=== PATIENT | male | born 1960 | race Caucasian/White ===

== ENCOUNTER 2017-11-16 21:23 | Emergency (ER) | payer MEDICARE ==
[~2017-11-16] VITALS: Ht 185.4 cm; Wt 78.2 kg
[~2017-11-16 21:23] MED LIST: PRIL40 PO; PRINIVIL40 MG PO; SYNTHROID0.05 MG/TA PO; TOPROL XL 25MG25 MG PO; ULTRAM 50MG TAB50 MG PO; WELLBUTRIN XL300 M1 PO; XARELTO20 MG PO; ZYLOPRIM 100MG100 MG PO
[2017-11-16 21:31] VITALS: TEMP 98.3
[2017-11-16 22:35] LABS: BASO # 0.1 (0.0-0.2); BASO % 0.9 % (0.0-2.0); EOS # 0.1 (0.0-0.7); EOS % 0.7 % (0-4.0); GRAN # 5.2 (1.4-6.5); GRAN % 73.6 % (42.2-75.2); HEMATOCRIT 36.7 % (42.0-52.0); HEMOGLOBIN 11.7 g/dl (13.5-18.0); LYMPH # 0.8 (1.2-3.4); MEAN CELL VOLUME 95 fl (80.0-100.0); MEAN CORPUSCULAR HEMOGLOBIN 30 pg (27.0-31.0); MEAN CORPUSCULAR HGB CONC 32 g/dl (33.0-37.0); MEAN PLATELET VOLUME 10.5 fl (7.4-10.4); MONO # 0.9 (0.1-0.6); MONO % 12.4 % (1.7-9.3); PLATELET COUNT 185 K/mm3 (130-400); RED BLOOD COUNT 3.86 M/mm3 (4.20-5.60); REDCELL DISTRIBUTION WIDTH-CV 14.6 % (11.5-14.5)
[2017-11-16] MEDS ORDERED: KEPPRA SUSP100 MG/ML PO (22:45)
[2017-11-16] MEDS ORDERED: SYNTHROID0.1 MG/TAB PO (22:46)
[2017-11-16] MEDS ORDERED: CELEBREX 200MG200 MG PO (22:46)
[2017-11-16] MEDS ORDERED: PRINIVIL20 MG PO (22:47)
[2017-11-16] MEDS ORDERED: REVATIO20 MG PO (22:48)
[2017-11-16 22:51] LABS: CALCIUM 8.6 mg/dL (8.4-10.2); CREATININE, serum 0.96 mg/dL (0.66-1.25); POTASSIUM 4.3 mmol/L (3.4-5.0)
[2017-11-16] MEDS ORDERED: PERCOCET 325 MG1 TA2 PO (22:53)
[2017-11-16 23:30] VITALS: BP 127/93; PULSE 82
== END 2017-11-16 23:26 | disposition home or self-care (01) ==
LOC: COL.ER 21:23
PROVIDERS: Emergency Medicine
DX: I82.401 Acute embolism and thrombosis of unspecified deep veins of right lower extremity (principal); Z79.01 Long term (current) use of anticoagulants
CPT/HCPCS: J3010

== ENCOUNTER 2020-01-18 11:51 | Day surgery (SDC) | payer MEDICARE ==
[2020-01-18] VITALS (10 sets, daily range): BP systolic 106–124; BP diastolic 67–86; PULSE 54–77; TEMP 97.2–98.2
[~2020-01-18] VITALS: Ht 185.4 cm; Wt 81.5 kg
[~2020-01-18 11:51] MED LIST changes: +CELEBREX 200MG200 MG PO; +KEPPRA SUSP100 MG/ML PO; +PERCOCET 325 MG1 TA2 PO; +PRINIVIL20 MG PO; +REVATIO20 MG PO; +SYNTHROID0.1 MG/TAB PO
--- NOTE | 2020-01-18 13:55 | NUR ---
Initial visit; Patient thanked Microwave Supervisor for offering encouragement and prayer prior to his 'Procedure.' Microwave Supervisor offered God's blessings.
[2020-01-18] MEDS ORDERED: ZYRTEC 10MG10 MG PO (14:01)
[2020-01-18] MEDS ORDERED: ASPIRIN E.C. 8181 MG PO (14:02)
[2020-01-18] MEDS ORDERED: CALCIUM 600 MG1 EAC2 PO (14:05)
[2020-01-18] MEDS ORDERED: STOOL SOFTENER100 M2 PO (14:05)
[2020-01-18] MEDS ORDERED: TOPROL XL 50MG50 MG PO (14:08)
[2020-01-18] MEDS ORDERED: PRIL40 PO (14:09)
[2020-01-18] MEDS ORDERED: VTAMINC250TA PO (14:10)
--- NOTE | 2020-01-18 17:40 | NUR ---
Patient alert and oriented, answers questions appropriately. Dysphagia noted with speech. Lungs CTA. Heart tones strong and even. Abdomen with lap sites x3 with edges well approximated, no redness or drainage noted. Bowel sounds hypoactive x4 quads. No flatus. Ambulates to bathroom. No c/o at this time.
--- NOTE | 2020-01-18 22:02 | NUR ---
PT MEDICATED WITH NORCO 1 TAB PO FOR PAIN 11/03 TO ABD. HAS ABDOMINAL BINDER ON AND 3 ROBOTIC SITES TO RIGHT ABD WITH DRY BANDAIDS BENEATH. SL TO LEFT HAND WITHOUT REDNESS OR SWELLING. IS ALERT AND ORIENTED X3.
--- NOTE | 2020-01-18 23:47 | NUR ---
REPORTS CONTINUED PAIN TO ABD 6/10, MEDICATED WITH DILAUDID 0.25MG IVP AND SANDWICH BOX GIVEN.
--- NOTE | 2020-01-19 03:04 | NUR ---
ASSISTED PT TO BATHROOM, UNABLE TO VOID. REPORTS PAIN 6/10, DILAUDID 0.25MG IVP GIVEN AT THIS TIME AFTER PT BACK TO BED.
[2020-01-19 03:58] VITALS: BP 107/70; PULSE 65; TEMP 97.6
--- NOTE | 2020-01-19 05:49 | NUR ---
BLADDER SCANNED FOR 705CC. DR SHULTZ NOTIFIED, ORDER TO STRAIGHT CATH NOW.
--- NOTE | 2020-01-19 06:06 | NUR ---
STRAIGHT CATHED FOR 800CC OF YELLOW URINE. PT TOLERATED WITHOUT PROBLEM.
[2020-01-19 08:15] VITALS: BP 105/66; PULSE 79; TEMP 97.5
--- NOTE | 2020-01-19 09:45 | NUR ---
Patient alert and oriented, answers questions appropriately. See assessment. Abdomen soft, non tender, non distended. Bowel sounds active x4 quads. Lap sites to abdomen with band aids CDI. Abdominal binder in place. +Flatus. Urinating adequately. Post op exercises reviwed with patient. No c/o at this time.
[2020-01-19] MEDS ORDERED: NORCO 325 MG-51 TAB PO (10:10)
--- NOTE | 2020-01-19 12:07 | NUR ---
CLINTON met with the patient to discuss discharge plan. The patient lives in [place] with his girlfriend, Bel. He reports independence with ADLs and does not have any DME. The patient's PCP is Dr. Lay Kemp and he receives his medications from [facility]. He reports no difficulties obtaining his meds. The patient does not have a DPOA-HC and he was not interested in completing one at this time. He states that he is not , does not have any children, and that his parents have . He states that he has two siblings: Valencia (ph#[phone]) and a brother. Valencia also lives in [place]. He has not spoken to his brother in ten years. The patient plans to return home with his girlfriend upon discharge. He states that his girlfriend will transport him home. He reports that the best way to get in touch with his girlfriend is to call their neighbor, Valerie (ph#[phone]). Valerie will notify her that we have called. The patient informed CLINTON that he may also have Medicaid. CLINTON notified Financial Counselor, Heather. CLINTON presented the Release of Information Forms for Medicaid to the patient. The patient signed and CLINTON emailed the signed forms to Financial Counseling. Heather reports that it looks like the patient has applied for Medicaid and it is processing. CLINTON updated the patient. No additional needs at this time.
--- NOTE | 2020-01-19 12:50 | NUR ---
Discharge instructions reviewed with patient, verbalized understanding. Discharged via wheelchair to auto/home with family at 1250.
== END 2020-01-19 12:50 | disposition home or self-care (01) ==
LOC: SDCO 11:51 → SURG 11:51 → SDCO 12:30 → SURG 18:15 → SDCO 01-19 12:50
DX: K43.0 Incisional hernia with obstruction, without gangrene (principal); K21.9 Gastro-esophageal reflux disease without esophagitis; E03.9 Hypothyroidism, unspecified; M10.9 Gout, unspecified; I10 Essential (primary) hypertension; G40.909 Epilepsy, unspecified, not intractable, without status epilepticus; Z95.828 Presence of other vascular implants and grafts; Z79.01 Long term (current) use of anticoagulants; Z79.899 Other long term (current) drug therapy; Z79.890 Hormone replacement therapy; Z86.718 Personal history of other venous thrombosis and embolism; Z91.041 Radiographic dye allergy status
CPT/HCPCS: OP; C1781; J0690; J1100; J1170; J2405; J2704; J2710; J3010; J7120

== ENCOUNTER → 2023-09-08 | Outpatient (CLI) | payer MEDICARE ==
[~2023-09-08] MED LIST changes: +ASPIRIN E.C. 8181 MG PO; +CALCIUM 600 MG1 EAC2 PO; +NORCO 325 MG-51 TAB PO; +STOOL SOFTENER100 M2 PO; +TOPROL XL 50MG50 MG PO; +VTAMINC250TA PO; +ZYRTEC 10MG10 MG PO
== END ==
LOC: MHCPAIN 10:53
DX: M47.896 Other spondylosis, lumbar region (principal); M54.50 Low back pain, unspecified; I73.9 Peripheral vascular disease, unspecified
CPT/HCPCS: G0463